=== PATIENT | male | born 1930 | race Caucasian/White ===

== ENCOUNTER 2018-01-03 23:01 | Inpatient (IN) | payer OTHER, BC ==
[~2018-01-03] VITALS: Ht 165.1 cm; Wt 72.6 kg
[~2018-01-03 23:01] MED LIST: ACET-1256 PO; ALLO300T2 PO; AMLO-110 PO; ASPI325T4 PO; ATOR-14 PO; CHOL1000 PO; CITA20TA4 PO; FINA5TAB PO; FLM4 PO; LORA-741 PO; MULT-190 PO; MULT-506 PO; PANT40TA PO; TRAM-10 PO; ZOLP10TA PO
[2018-01-03 23:41] LABS: BASO % 0.4 %; BASO ABS # 0.02 K/uL (0-0.2); EOS % 1.7 %; EOS ABS # 0.08 K/uL (0-0.5); HEMOGLOBIN 12.6 g/dL (14.0-18.0); IG# 0.02 K/uL (0.00-0.02); LYMPH % 20.5 %; LYMPH ABS # 0.96 K/uL (1.2-3.4); MEAN CELL VOLUME 107.6 fL (80-100); MEAN CORPUSCULAR HEMOGLOBIN 36.6 pg (25-34); MEAN CORPUSCULAR HGB CONC 34.1 g/dl (32-36); MEAN PLATELET VOLUME 10.2 fL (7.4-10.4); MONO ABS # 0.75 K/uL (0.11-0.59); NEUT ABS # 2.85 K/uL (1.4-6.5); PLATELET COUNT 131 K/uL (130-400); RED CELL DISTRIBUTION WIDTH CV 16.1 % (11.5-14.5); RED CELL DISTRIBUTION WIDTH SD 63.8 fL (36.4-46.3); WHITE BLOOD COUNT 4.68 K/uL (4.8-10.8)
[2018-01-03] MEDS ORDERED: ALBUT/IPRATROP 3MG/0.5MG NEB 3 ML VIAL INH STA (23:44)
[2018-01-03] MEDS ORDERED: ACETAMINOPHEN 500 MG TAB PO STA (23:44)
[2018-01-03 23:52] LABS: PTT PATIENT 29.5 SECONDS (21.0-31.0)
[2018-01-04 00:08] LABS: INFLUENZA B ANTIGEN Neg for Influ B (NEG)
[2018-01-04 00:11] LABS: ALBUMIN 3.1 gm/dl (3.4-5.0); CALCIUM 8.2 mg/dl (8.5-10.1); CREATININE 1.17 mg/dl (0.60-1.40); POTASSIUM 3.7 mmol/L (3.5-5.1)
[2018-01-04 00:14] LABS: TOTAL PROTEIN 7.2 gm/dl (6.4-8.2)
[2018-01-04] MEDS ORDERED: OPTIRAY 320 IV PRN (01:00)
[2018-01-04] MEDS ORDERED: TRAMADOL HCL 50 MG TAB PO ONE (05:31)
[2018-01-04] MEDS ORDERED: TRAMADOL HCL 50 MG TAB ONE (05:36)
[2018-01-04] MEDS ORDERED: TRAMADOL HCL 50 MG TAB PO PRN (05:45)
[2018-01-04] MEDS ORDERED: ALBUT/IPRATROP 3MG/0.5MG NEB 3 ML VIAL INH PRN (05:45)
[2018-01-04] MEDS ORDERED: ACETAMINOPHEN 325 MG TAB PO PRN (05:45)
[2018-01-04] MEDS ORDERED: KETOROLAC TROMETHAMINE 15 MG/ML VIAL IV. PRN (05:45)
[2018-01-04] MEDS ORDERED: LORAZEPAM 0.5 MG TAB PO PRN (05:45)
[2018-01-04] MEDS ORDERED: POLYETHYLENE (MIRALAX) 17 GM PACK PO PRN (05:45)
[2018-01-04] MEDS ORDERED: HYDROmorphone INJ 0.5 MG/0.5 ML SYR IV PRN (05:45)
[2018-01-04] MEDS ORDERED: PROCHLORPERAZINE INJ 5 MG in SYRINGE 4 ML IV PRN (05:45)
[2018-01-04] MEDS ORDERED: DOXYCYCLINE IV 100 MG in DEXTROSE 5% 100ML 100 ML IV ONE (06:30)
[2018-01-04] MEDS ORDERED: DOCUSATE SODIUM/SENNA 50/8.6MG TAB PO ONE (06:30)
[2018-01-04] MEDS ORDERED: METHYLPREDNISOLONE IV 40 MG in SYRINGE 0 ML IV ONE (06:30)
[2018-01-04] MEDS ORDERED: POLYETHYLENE (MIRALAX) 17 GM PACK PO ONE (06:30)
[2018-01-04] MEDS ORDERED: NSS + 20MEQ KCL 1000ML 1,000 ML IV ONE (06:30)
[2018-01-04 06:40] VITALS: BP 169/80; PULSE 82; TEMP 36.7; O2SAT 95; Ht 165.1 cm; Wt 72.6 kg
--- NOTE | 2018-01-04 07:13 | DIAGNOSTIC IMAGING REPORT ---
PA CHEST RADIOGRAPH AND UPRIGHT AND SUPINE AP RADIOGRAPHS OF THE ABDOMEN CLINICAL HISTORY: Abdominal pain. Evaluate for small bowel obstruction. COMPARISON STUDY: Chest radiograph September 09, 2012. FINDINGS: Lung volumes are normal. Right shoulder arthroplasty is incidentally noted. There is no evidence for pulmonary edema. Cardiac size is normal. Mediastinal contours are normal. There is no consolidation. There is no free air. Prominent loops gas-filled small bowel are noted without convincing evidence for a small bowel obstruction. Bilateral renal calculi measure up to 5 mm. IMPRESSION: 1. No free air or evidence for a bowel obstruction. 2. No acute cardiopulmonary findings. 3. Bilateral nephrolithiasis. Electronically signed by: Harish Oswald M.D. 01/04/2018 7:12 AM Dictated Date/Time: 01/04/2018 7:09 AM
[2018-01-04] MEDS ORDERED: DOCUSATE SODIUM/SENNA 50/8.6MG TAB PO SCH (08:00)
[2018-01-04] MEDS: CITALOPRAM 20 MG TAB PO SCH (08:18)
[2018-01-04] MEDS: ENOXAPARIN 30 MG/0.3 ML SYR SQ SCH (08:18)
--- NOTE | 2018-01-04 08:19 | DIAGNOSTIC IMAGING REPORT ---
CT OF THE ABDOMEN AND PELVIS WITH CONTRAST CLINICAL HISTORY: Abdominal pain. Evaluate for small bowel obstruction. COMPARISON STUDY: Abdominal series performed January 03, 2018. TECHNIQUE: Following IV administration of 93 mL of Optiray-320, axial images of the abdomen and pelvis were obtained from the lung bases to the proximal femurs. Images were reviewed in the axial, sagittal, and coronal planes. IV contrast was administered without complication. A dose lowering technique was utilized adhering to the principles of ALARA. CT DOSE: 413.19 mGy.cm FINDINGS: Visualized portions of the lower lungs demonstrate scattered tree-in-bud nodules. No pneumatosis, free air or portal venous gas is present. A 7 mm right hepatic lobe lesion is too small to characterize but likely benign. A few water attenuation left renal lesions reflect cysts. There are bilateral renal calculi which measure up to 5 mm. There are no ureteral calculi and there is no hydronephrosis. Prostate is moderately enlarged. Bladder wall irregularity is noted with bladder diverticula and trabeculations. No abdominal or pelvic lymphadenopathy is present. There is no peripancreatic or pericholecystic infiltration. There is pancreatic glandular atrophy. Extensive sigmoid diverticulosis is noted without evidence for acute diverticulitis. There is no evidence for a bowel obstruction. The appendix is normal. No suspicious osseous lesions are present. Multilevel degenerative changes within the spine are noted. IMPRESSION: 1. No acute process within the abdomen or pelvis. 2. Bilateral nephrolithiasis. No ureteral calculi or hydronephrosis. 2. Extensive left colon diverticulosis without evidence for acute diverticulitis. 3. Moderate enlargement of the prostate. Irregular bladder wall thickening with trabeculation and bladder diverticula. This suggests chronic bladder outlet obstruction. Electronically signed by: Harish Oswald M.D. 01/04/2018 8:17 AM Dictated Date/Time: 01/04/2018 8:12 AM
[2018-01-04] MEDS: ATORVASTATIN 10 MG TAB PO SCH (08:22)
[2018-01-04] MEDS: ASPIRIN 325 MG ECTAB PO SCH (08:22)
[2018-01-04] MEDS: TAMSULOSIN HCL 0.4 MG CAP PO SCH (08:22)
[2018-01-04] MEDS: MULTIVITAMIN TAB PO SCH (08:23)
[2018-01-04] MEDS: CEROVITE ADV FORMULA TAB PO SCH (08:23)
[2018-01-04] MEDS: AMLODIPINE BESYLATE 5 MG TAB PO SCH (08:24)
[2018-01-04] MEDS: FINASTERIDE 5 MG TAB PO SCH (08:25)
[2018-01-04] MEDS: PANTOprazole SOD 40 MG TAB PO SCH (08:26)
[2018-01-04] MEDS: ALLOPURINOL 300 MG TAB PO SCH (08:26)
[2018-01-04 08:28] VITALS: BP 155/67; PULSE 82; TEMP 36.8; O2SAT 91
[2018-01-04 08:30] VITALS: O2SAT 91
[2018-01-04] MEDS ORDERED: LEVALBUTEROL/IPRATROPIUM NEB INH SCH (09:00)
--- NOTE | 2018-01-04 09:47 | HISTORY & PHYSICAL EXAMINATION ---
DATE OF ADMISSION: 01/04/2018 PRIMARY CARE DOCTOR: Sanya Pearl MD. CHIEF COMPLAINT: Cough, congestion, abdominal pain. HISTORY OF PRESENT ILLNESS: History obtained from the patient and records. Medical history significant for CAD status post stent, PVD, hypertension, hyperlipidemia, past tobacco abuse, GERD, anxiety, Chronic pain secondary to myofascial pain syndrome, aortic stenosis as per records, chronic anemia (baseline hemoglobin 12). Recent confinement under orthopedic service for right shoulder surgery in 2011. The last few days, the patient noted sinus symptoms, congestion, initially productive of clear later junky sputum. No chest pain with coughing, some chills, wheezing noted. Denies aspiration. Increasing abdominal pain, constipation. Some nausea, no emesis. Patient denies dysuria. Possible sick contacts. Denies flulike symptoms. At the ER, patient noted to be hypoxemic. He received a breathing treatment. MEDICAL HISTORY: As above. A 2D echo from June 2017 showed EF of 65%, severely calcified aortic valve. SURGERIES: He has had urologic procedures, shoulder surgery and vasectomy. HOME MEDICATIONS: Include Ambien, Ultram, citalopram, Proscar, multivitamins, Ocuvite, Protonix, tamsulosin, Zyloprim, aspirin, Lipitor, Tylenol, Norvasc, vitamin D3. ALLERGIES: No known drug allergies. FAMILY HISTORY: Kidney disease. PERSONAL AND SOCIAL HISTORY: Past tobacco abuse. No chronic intake of alcoholic beverages. Retired drafting engineer. REVIEW OF SYSTEMS: As per HPI. All 10 systems reviewed, all other ROS negative. PHYSICAL EXAMINATION: VITAL SIGNS: Blood pressure noted to be 165/89, pulse rate 97, RR 24, temperature 37, sats 88 on 4 liters. GENERAL: Noted to be somewhat irate, minimal respiratory distress. SKIN : pallor, warm HEENT : Pale palpebral conjunctiva. No ptosis. Dry buccal mucosa. Nasal cannula in place. NECK: Supple, nontender. CHEST: Occasional wheeze. No tenderness. HEART: Regular rate and rhythm, systolic murmur. ABDOMEN: Some distension, nontender. EXTREMITIES: No edema noticed. No LE tenderness. No gross deformities. NEUROLOGIC: Coherent. No gross focality. LABORATORY DATA: Hemoglobin was noted to be 12.6, hematocrit 37, white cell 4.68, platelets 131. Sodium 131, potassium 3.7, chloride 102, CO2 28, BUN 12, creatinine 1.17, glucose 104. ABG: pH 7.44, pCO2 40, pO2 71 on 3 liters. Chest x-ray as per my interpretation, no infiltrate. CT abdomen and pelvis initial read showed diverticulosis, no bowel obstruction. calcified lung nodules, questionable tree bud lung infiltrate, no bowel obstruction, diverticulosis, some bladder wall thickening. EKG as per my interpretation rate 90, NSR, LAD, LAFB no ischemia ASSESSMENT: 1 Acute hypoxemic respiratory failure secondary to complicated bronchitis. No sepsis. 2. Constipation, narcotic induced 3. Coronary artery disease status post stenting. 4. Peripheral vascular disease. 5. hx of aortic stenosis 6. Past tobacco abuse. 7. Chronic anemia, hemoglobin at baseline. PLAN: GMF supplemental O2. Doxycycline, nebs steroid one dose, may benefit from additional steroid dosing bowel regimen. PT, OT eval. DVT prophylaxis with Lovenox subQ. Full code. MTDD
[2018-01-04] MEDS: IPRATROPIUM BROMIDE NEB SOLN 0.02% 2.5 ML VIAL INH SCH ×2 (14:48→19:17)
[2018-01-04] MEDS: LEVALBUTEROL 1.25MG/0.5ML NEB INH SCH ×2 (14:48→19:17)
[2018-01-04 14:50] VITALS: PULSE 94; O2SAT 92
--- NOTE | 2018-01-04 15:42 | Progress Note ---
Medicine Progress Note Date & Time of Visit: Jan 04, 2018 at 15:24. Subjective Pt was seen and examined Lying in bed with no distress Pt said that he continues to cough He said that he feels weak He had 3 BM today He said that he has pain everywhere Denies any fever, chest pain, palpitation Objective Last 8 Hrs Date Time Temp Pulse Resp B/P (MAP) Pulse Ox O2 Delivery O2 Flow Rate FiO2 01/04/18 14:50 94 16 92 Nasal Cannula 2.0 01/04/18 08:30 91 Room Air 01/04/18 08:28 36.8 82 155/67 (96) 91 Room Air Physical Exam: General- no acute distress Head- atraumatic Eyes- PERRL, EOMI ENT- oropharynx clear Neck- supple, no JVD Lungs- Poor air entry Heart- regular rhythm Abdomen- normal bowel sounds, soft Extremities-No calf tenderness Neuro- alert, oriented x 3; PERRL, EOMI Skin- warm & dry Laboratory Results: Last 24 Hours Test 01/03/18 23:20 01/03/18 23:26 01/04/18 00:30 01/04/18 05:36 White Blood Count 4.68 K/uL Red Blood Count 3.44 M/uL Hemoglobin 12.6 g/dL Hematocrit 37.0 % Mean Corpuscular Volume 107.6 fL Mean Corpuscular Hemoglobin 36.6 pg Mean Corpuscular Hemoglobin Concent 34.1 g/dl Platelet Count 131 K/uL Mean Platelet Volume 10.2 fL Neutrophils (%) (Auto) 61.0 % Lymphocytes (%) (Auto) 20.5 % Monocytes (%) (Auto) 16.0 % Eosinophils (%) (Auto) 1.7 % Basophils (%) (Auto) 0.4 % Neutrophils # (Auto) 2.85 K/uL Lymphocytes # (Auto) 0.96 K/uL Monocytes # (Auto) 0.75 K/uL Eosinophils # (Auto) 0.08 K/uL Basophils # (Auto) 0.02 K/uL RDW Standard Deviation 63.8 fL RDW Coefficient of Variation 16.1 % Immature Granulocyte % (Auto) 0.4 % Immature Granulocyte # (Auto) 0.02 K/uL Prothrombin Time 10.5 SECONDS Prothromb Time International Ratio 1.0 Activated Partial Thromboplast Time 29.5 SECONDS Partial Thromboplastin Ratio 1.1 Sodium Level 138 mmol/L Potassium Level 3.7 mmol/L Chloride Level 102 mmol/L Carbon Dioxide Level 28 mmol/L Anion Gap 8.0 mmol/L Blood Urea Nitrogen 12 mg/dl Creatinine 1.17 mg/dl Est Creatinine Clear Calc Drug Dose 41.6 ml/min Estimated GFR () 65.5 Estimated GFR (Non- 56.5 BUN/Creatinine Ratio 10.2 Random Glucose 104 mg/dl Calcium Level 8.2 mg/dl Magnesium Level 2.2 mg/dl Total Bilirubin 0.4 mg/dl Aspartate Amino Transf (AST/SGOT) 29 U/L Alanine Aminotransferase (ALT/SGPT) 36 U/L Alkaline Phosphatase 61 U/L Total Protein 7.2 gm/dl Albumin 3.1 gm/dl Globulin 4.1 gm/dl Albumin/Globulin Ratio 0.8 Lipase 48 U/L Thyroid Stimulating Hormone (TSH) 3.110 uIu/ml Influenza Type A Antigen Neg for Influ A Influenza Type B Antigen Neg for Influ B Bedside Lactic Acid Venous 1.57 mmol/L Urine Color YELLOW Urine Appearance CLEAR Urine pH 7.0 Urine Specific [place] 1.014 Urine Protein 1+ Urine Glucose (UA) NEG Urine Ketones TRACE Urine Occult Blood NEG Urine Nitrite NEG Urine Bilirubin NEG Urine Urobilinogen NEG Urine Leukocyte Esterase NEG Urine WBC (Auto) 1-5 /hpf Urine RBC (Auto) 0-4 /hpf Urine Hyaline Casts (Auto) 1-5 /lpf Urine Epithelial Cells (Auto) 5-10 /lpf Urine Bacteria (Auto) NEG Arterial Blood pH 7.44 Arterial Blood Partial Pressure CO2 40 mmHg Arterial Blood Partial Pressure O2 71 mm/Hg Arterial Blood HCO3 27 mmol/L Arterial Blood Oxygen Saturation 93.2 % Arterial Blood Base Excess 2.7 mEq/L Arterial Blood Gas Delivery 3L Terence Test POS Date/Time Source Procedure Growth Status 01/03/18 23:25 Blood Blood Culture Pending Received 01/03/18 23:20 Blood Blood Culture Pending Received Assessment & Plan Acute hypoxia respiratory failure Possible 2nd to bronchitis. Flu negative for influenza antigen Will get Influenza PCR Blood cx pending CXR negative for Pneumonia Continue doxycycline Received solumedrol this morning Continue neb treatment continue monitor Constipation mostly induced by narcotic On docusate Had 3 BM today CAD S/P stenting. Peripheral vascular disease Continue Aspirin/Statin Stable Chronic pain syndrome On tramadol and Tylenol Weakness Possible related to the acute illness UA negative PT/OT Fall precaution Chronic anemia Hemoglobin at baseline. Stable DVT px on lovenox CODE STATUS FULL CODE Current Inpatient Medications: Current Inpatient Medications Medications (Trade) Dose Ordered Sig/Erika Route Start Time Stop Time Status Last Admin Dose Admin Ioversol (Optiray 320) 100 ml UD PRN IV 01/04/18 01:00 01/08/18 00:59 Tramadol HCl (Ultram Tab) not relieved ... Q6H PRN PO 01/04/18 05:45 02/03/18 05:44 Doxycycline Hyclate (Vibramycin Cap) 100 mg BID PO 01/04/18 20:00 01/11/18 20:59 Potassium Chloride/Sodium Chloride 1,000 ml @ 60 mls/hr [id number] ONCE IV 01/04/18 06:30 01/04/18 23:09 01/04/18 07:04 60 MLS/HR Albuterol/ Ipratropium (Duoneb) 3 ml Q2H PRN INH 01/04/18 05:45 02/03/18 05:44 Senna/Docusate Sodium (Senokot S Tab) 1 tab BID PO 01/04/18 08:00 02/03/18 08:59 Polyethylene (Miralax Powder Packet) 17 gm DAILY PRN PO 01/04/18 05:45 02/03/18 05:44 Prochlorperazine Edisylate 5 mg/ Syringe 5 ml @ 5 mls/min Q6H PRN IV 01/04/18 05:45 02/03/18 05:44 Allopurinol (Zyloprim Tab) 300 mg DAILY PO 01/04/18 08:00 02/03/18 08:59 01/04/18 08:26 300 MG Amlodipine Besylate (Norvasc Tab) 5 mg DAILY PO 01/04/18 08:00 02/03/18 08:59 01/04/18 08:24 5 MG Aspirin (Ecotrin Tab) 325 mg DAILY PO 01/04/18 08:00 02/03/18 08:59 01/04/18 08:22 325 MG Atorvastatin Calcium (Lipitor Tab) 10 mg DAILY PO 01/04/18 08:00 02/03/18 08:59 01/04/18 08:22 10 MG Citalopram Hydrobromide (celeXA TAB) 20 mg DAILY PO 01/04/18 08:00 02/03/18 08:59 01/04/18 08:18 20 MG Finasteride (Proscar Tab) 5 mg DAILY PO 01/04/18 08:00 02/03/18 08:59 01/04/18 08:25 5 MG Multivitamins (Multivitamin Tab) 1 tab DAILY PO 01/04/18 08:00 02/03/18 08:59 01/04/18 08:23 1 TAB Multivitamins/ Minerals (Multivitamin W/ Minerals Tab) 1 tab DAILY PO 01/04/18 08:00 02/03/18 08:59 01/04/18 08:23 1 TAB Pantoprazole Sodium (Protonix Tab) 40 mg DAILY PO 01/04/18 08:00 02/03/18 08:59 01/04/18 08:26 40 MG Tamsulosin HCl (Flomax Cap) 0.4 mg DAILY PO 01/04/18 08:00 02/03/18 08:59 01/04/18 08:22 0.4 MG Lorazepam (Ativan Tab) 0.25 mg HS PRN PO 01/04/18 05:45 02/03/18 05:44 Enoxaparin Sodium (Lovenox Inj) 30 mg Q24H SQ 01/04/18 07:00 02/03/18 06:59 01/04/18 08:18 30 MG Acetaminophen (Tylenol Tab) 650 mg Q4H PRN PO 01/04/18 05:45 02/03/18 05:44 Hydromorphone HCl (Dilaudid Inj) 0.25 mg Q6H PRN IV 01/04/18 05:45 01/18/18 05:44 Ketorolac Tromethamine (Toradol Inj) 15 mg Q6H PRN IV. 01/04/18 05:45 01/09/18 05:44 Ipratropium [place] (Atrovent 0.02% 0.5MG/2.5ML Neb) 0.5 mg Q6R INH 01/04/18 09:00 02/03/18 08:59 01/04/18 14:48 0.5 MG Levalbuterol (Xopenex 1.25MG/ 0.5ML Neb) 1.25 mg Q6R INH 01/04/18 09:00 02/03/18 08:59 01/04/18 14:48 1.25 MG
[2018-01-04] MEDS ORDERED: DOCUSATE SODIUM/SENNA 50/8.6MG TAB PO PRN (15:45)
[2018-01-04 16:22] VITALS: BP 130/68; PULSE 99; TEMP 36.9; O2SAT 91
[2018-01-04 16:58] LABS: INFLUENZA A PCR Neg for Influ A (NEG); INFLUENZA B PCR Neg for Influ B (NEG)
[2018-01-04 19:20] VITALS: PULSE 101; O2SAT 96
[2018-01-04] MEDS: DOXYCYCLINE HYCLATE 100 MG CAP PO SCH (20:33)
--- NOTE | 2018-01-04 22:34 | EMERGENCY ROOM VISIT NOTE ---
History Report prepared by Tyson: Ronit Sandoval Under the Supervision of: Dr. Su Burnette D.O. First contact with patient: 23:09 Chief Complaint: ABDOMINAL PAIN Stated Complaint: ABDOMINAL PAIN/FLU LIKE SYMPTOMS History of Present Illness The patient is an 87 year old male who presents to the Emergency Room with complaints of worsening abdominal pain starting 2 days ago. The patient states that his abdomen feels distended. He currently rates his pain asa 6/10 in severity. He reports that he has not had a good bowel movement recently. The patient complains of cough, congestion, shortness of breath, and a low grade fever. The patient denies nausea, vomiting, and diarrhea. The patient's nurse notes he is 90% on room air. The patient denies ever having respiratory problems or using inhalers although he is a former smoker. The patient denies having any abdominal surgeries. He notes he had a colonoscopy 7-8 years ago that was normal. Source of History: patient Onset: 2 days ago Position: abdomen Symptom Intensity: 6/10 Quality: other (distended) Timing: worsening Associated Symptoms: + fevers, + cough, + SOB, No nausea, No vomiting, No diarrhea Note: The patient complains of congestion and not having a bowel movement recently. Review of Systems See HPI for pertinent positives & negatives. A total of 10 systems reviewed and were otherwise negative. Past Medical & Surgical Medical Problems: (1) Respiratory failure, acute Surgical Problems: (1) Hx of shoulder surgery Family History Patient reports no known family medical history. Social History Smoking Status: Former Smoker Marital Status: single Housing Status: lives alone Occupation Status: retired Current/Historical Medications Scheduled Allopurinol (Zyloprim), 300 MG PO DAILY Amlodipine (Norvasc), 5 MG PO DAILY Aspirin (Aspirin), 325 MG PO DAILY Atorvastatin (Lipitor), 10 MG PO DAILY Cholecalciferol (Vitamin D3), 1 TAB PO DAILY Citalopram Hydrobromide (Citalopram Hydrobromide), 20 MG PO DAILY Finasteride (Proscar), 5 MG PO DAILY Multivitamin (Multivitamin), 1 TAB PO DAILY Ocuvite Preservision (Ocuvite Preservision), 1 TAB PO DAILY Pantoprazole (Protonix), 40 MG PO DAILY Tamsulosin HCl (Tamsulosin HCl), 1 CAP PO DAILY Zolpidem Tartrate (Ambien), 5 MG PO HS PRN Scheduled PRN Acetaminophen (Tylenol), 1,000 MG PO Q8 PRN for Pain Tramadol (Ultram), 50 MG PO Q6 PRN for Pain Allergies Coded Allergies: NO KNOWN DRUG ALLERGIES (Verified Allergy, Unknown, ., 01/04/18) Uncoded Allergies: BASE CREAM (Allergy, Unknown, hives, 01/04/18) Physical Exam Vital Signs Date Time Temp Pulse Resp B/P (MAP) Pulse Ox O2 Delivery O2 Flow Rate FiO2 01/04/18 05:15 75 20 152/75 95 Nasal Cannula 4.0 01/04/18 04:00 70 20 136/69 95 Nasal Cannula 4.0 01/04/18 03:10 84 01/04/18 03:08 79 20 156/72 96 Nasal Cannula 4.0 01/04/18 02:00 72 20 128/66 96 Nasal Cannula 4.0 01/04/18 01:00 36.8 91 22 147/89 98 Nasal Cannula 4.0 01/04/18 00:00 85 20 136/72 97 Nasal Cannula 4.0 01/03/18 23:29 93 Nasal Cannula 2.0 01/03/18 23:20 88 Nasal Cannula 4.0 01/03/18 23:10 103 01/03/18 23:04 37.5 97 24 165/89 91 Room Air Physical Exam HEENT: Head - normocephalic and atraumatic Pupils are equal, round, and reactive to light. Extraocular eye muscles are intact, and sclera are anicteric. Nose - moist nasal mucosa without discharge. Mouth - moist buccal mucosa. Oropharynx is nonerythematous and there is no tonsillar exudate or edema noted. Neck: Supple; no JVD, nuchal rigidity, cervical lymphadenopathy, or auscultated bruits. Heart: Tachycardic rate and regular rhythm. There is a normal S1 and S2 with no murmurs, clicks, or gallops appreciated. Lungs: Diffuse inspiratory and expiratory wheezes in all lung louise. No rales or rhonchi. Abdomen: Soft, significant abdominal distension. tympanic to percussion. Hypoactive bowel sounds. There are no palpable pulsatile masses or hepatosplenomegaly. There is no guarding, rigidity, or rebound noted. Extremities: No evidence of cyanosis, clubbing, or edema. There are easily palpable peripheral pulses. Skin: hot and dry with good turgor and no rashes. Medical Decision & Procedures ER Provider Diagnostic Interpretation: Radiology results as stated below per my review and the radiologist's interpretation: OBSTRUCTION SERIES: The results were interpreted by me. Unremarkable chest. Mild dilated loops of small bowel. No free air. Some colonic fecal retention. Very little air in rectum. No obvious sign of bowel obstruction. CT ABDOMEN & PELVIS With Contrast: No priors. Atelectasis and/or scar at lung bases. There is mucous or debris in some of the airways. Calcified and noncalcified lung nodules. Questionable tree-in-bud type infiltrate. No bowel obstruction. Diverticulosis without diverticulitis. No evidence for appendicitis. Prostate enlargement. There is wall thickening of bladder which may be related. Correlate for cystitis. Chronic/incidental findings include fatty atrophy of the pancreas, renal cysts, low density liver lesion too small to characterize and bladder diverticula. Radiologist: Mariano Lyle MD Study ready at 03:10 and initial results transmitted at 03:43. Laboratory Results 01/03/18 23:20 Red Blood Count 3.44, Mean Corpuscular Volume 107.6, Mean Corpuscular Hemoglobin 36.6, Mean Corpuscular Hemoglobin Concent 34.1, Mean Platelet Volume 10.2, Neutrophils (%) (Auto) 61.0, Lymphocytes (%) (Auto) 20.5, Monocytes (%) ( Auto) 16.0, Eosinophils (%) (Auto) 1.7, Basophils (%) (Auto) 0.4, Neutrophils # (Auto) 2.85, Lymphocytes # (Auto) 0.96, Monocytes # (Auto) 0.75, Eosinophils # ( Auto) 0.08, Basophils # (Auto) 0.02 01/03/18 23:20 Test 01/03/18 23:20 01/03/18 23:26 01/04/18 00:30 White Blood Count 4.68 K/uL (4.8-10.8) Red Blood Count 3.44 M/uL (4.7-6.1) Hemoglobin 12.6 g/dL (14.0-18.0) Hematocrit 37.0 % (42-52) Mean Corpuscular Volume 107.6 fL (80-100) Mean Corpuscular Hemoglobin 36.6 pg (25-34) Mean Corpuscular Hemoglobin Concent 34.1 g/dl (32-36) Platelet Count 131 K/uL (130-400) Mean Platelet Volume 10.2 fL (7.4-10.4) Neutrophils (%) (Auto) 61.0 % Lymphocytes (%) (Auto) 20.5 % Monocytes (%) (Auto) 16.0 % Eosinophils (%) (Auto) 1.7 % Basophils (%) (Auto) 0.4 % Neutrophils # (Auto) 2.85 K/uL (1.4-6.5) Lymphocytes # (Auto) 0.96 K/uL (1.2-3.4) Monocytes # (Auto) 0.75 K/uL (0.11-0.59) Eosinophils # (Auto) 0.08 K/uL (0-0.5) Basophils # (Auto) 0.02 K/uL (0-0.2) RDW Standard Deviation 63.8 fL (36.4-46.3) RDW Coefficient of Variation 16.1 % (11.5-14.5) Immature Granulocyte % (Auto) 0.4 % Immature Granulocyte # (Auto) 0.02 K/uL (0.00-0.02) Prothrombin Time 10.5 SECONDS (9.0-12.0) Prothromb Time International Ratio 1.0 (0.9-1.1) Activated Partial Thromboplast Time 29.5 SECONDS (21.0-31.0) Partial Thromboplastin Ratio 1.1 Anion Gap 8.0 mmol/L (3-11) Est Creatinine Clear Calc Drug Dose 41.6 ml/min Estimated GFR () 65.5 Estimated GFR (Non- 56.5 BUN/Creatinine Ratio 10.2 (10-20) Calcium Level 8.2 mg/dl (8.5-10.1) Magnesium Level 2.2 mg/dl (1.8-2.4) Total Bilirubin 0.4 mg/dl (0.2-1) Aspartate Amino Transf (AST/SGOT) 29 U/L (15-37) Alanine Aminotransferase (ALT/SGPT) 36 U/L (12-78) Alkaline Phosphatase 61 U/L (45-117) Total Protein 7.2 gm/dl (6.4-8.2) Albumin 3.1 gm/dl (3.4-5.0) Globulin 4.1 gm/dl (2.5-4.0) Albumin/Globulin Ratio 0.8 (0.9-2) Lipase 48 U/L (73-393) Thyroid Stimulating Hormone (TSH) 3.110 uIu/ml (0.300-4.500) Influenza Type A Antigen Neg for Influ A (NEG) Influenza Type B Antigen Neg for Influ B (NEG) Bedside Lactic Acid Venous 1.57 mmol/L (0.90-1.70) Urine Color YELLOW Urine Appearance CLEAR (CLEAR) Urine pH 7.0 (4.5-7.5) Urine Specific [place] 1.014 (1.000-1.030) Urine Protein 1+ (NEG) Urine Glucose (UA) NEG (NEG) Urine Ketones TRACE (NEG) Urine Occult Blood NEG (NEG) Urine Nitrite NEG (NEG) Urine Bilirubin NEG (NEG) Urine Urobilinogen NEG (NEG) Urine Leukocyte Esterase NEG (NEG) Urine WBC (Auto) 1-5 /hpf (0-5) Urine RBC (Auto) 0-4 /hpf (0-4) Urine Hyaline Casts (Auto) 1-5 /lpf (0-5) Urine Epithelial Cells (Auto) 5-10 /lpf (0-5) Urine Bacteria (Auto) NEG (NEG) Laboratory results per my review. Medications Administered Medications (Trade) Dose Ordered Sig/Erika Route Start Time Stop Time Status Last Admin Dose Admin Albuterol/ Ipratropium (Duoneb) 3 ml NOW STAT INH 01/03/18 23:44 01/03/18 23:45 DC 01/03/18 23:54 3 ML Acetaminophen (Tylenol Tab) 1,000 mg NOW STAT PO 01/03/18 23:44 01/03/18 23:45 DC 01/03/18 23:54 1,000 MG Procedure 2344: Ordered Tylenol Tab 1000 mg PO, Duoneb 3 ml INH. ECG Indication: abdominal pain Rate (beats per minute): 91 Rhythm: normal sinus Findings: no acute ischemic change, no ectopy ED Course 2313: Past medical records reviewed. The patient was evaluated in room A3. A complete history and physical exam was performed. An IV lock was initiated and labs were drawn as above. 2344: Ordered Tylenol Tab 1000 mg PO, Duoneb 3 ml INH. The patient went for an obstruction series 0108: I reevaluated the patient and his abdomen still hurts, but he feels like he needs to move his bowels. He is passing gas. He states that he is breathing more easily. He will go for a CT scan of the abdomen/pelvis once he drinks oral contrast. 0121: I interpreted the patient's EKG at this time. 0428: The patient returned from CAT scan. I reevaluated the patient and he has still not moved his bowels. I discussed all his test results with him. The patient was up to the restroom without supplemental oxygen and was immediately hypoxic. 0436: Discussed the patient's case with Dr. Herrera. The patient will be evaluated for further management. Medical Decision The patient is an 87 year old male who presents to the Emergency Room with complaints of worsening abdominal pain starting 2 days ago. Differential diagnoses include bowel obstruction, appendicitis, perforated bowel , influenza, pneumonia. LABS: White count 4.6 Hemoglobin 12.6 Lactic acid 1.5 Normal renal function Normal glucose Normal LFTs Normal Coags Urine had trace ketones Negative flu This is a 87-year-old male patient presents to the emergency department with abdominal pain and distention and some associated shortness of breath and wheezing. Influenza testing was negative. Chest x-ray was unremarkable. The patient had improvement in his respiratory status with a DuoNeb treatment. Plain films of the abdomen so no signs of obstruction. CT scan of the abdomen/pelvis were essentially unremarkable. However, the patient remains hypoxic without supplemental oxygen. [facility] and [facility] will evaluate for further management. Medication Reconcilliation Current Medication List: was personally reviewed by me Blood Pressure Screening Patient's blood pressure: Elevated blood pressure Will be further monitored by the hospitalist. Consults Time Called: [phone] Consulting Physician[facility] Returned Call: [phone] Discussed the patient's case with Dr. Herrera. The patient will be evaluated for further management. Impression Primary Impression: Hypoxia Additional Impression: Abdominal pain Scribe Attestation The scribe's documentation has been prepared under my direction and personally reviewed by me in its entirety. I confirm that the note above accurately reflects all work, treatment, procedures, and medical decision making performed by me. Departure Information Dispostion Being Evaluated By Hospitalist Referrals Sanya Pearl MD (PCP) Patient Instructions My [facility] Problem Qualifiers Additional Impression: Abdominal pain Abdominal location: generalized Qualified Codes: R10.84 - Generalized abdominal pain
[2018-01-05] VITALS (8 sets, daily range): BP systolic 145–166; BP diastolic 66–79; PULSE 88–96; TEMP 36.4–36.6; O2SAT 91–99
[2018-01-05] MEDS: IPRATROPIUM BROMIDE NEB SOLN 0.02% 2.5 ML VIAL INH SCH ×3 (01:58→14:37)
[2018-01-05] MEDS: LEVALBUTEROL 1.25MG/0.5ML NEB INH SCH ×3 (01:58→14:36)
[2018-01-05 06:51] LABS: BASO % 0.3 %; BASO ABS # 0.02 K/uL (0-0.2); HEMATOCRIT 31.6 % (42-52); HEMOGLOBIN 10.7 g/dL (14.0-18.0); IG# 0.01 K/uL (0.00-0.02); LYMPH % 13.3 %; LYMPH ABS # 0.91 K/uL (1.2-3.4); MEAN CELL VOLUME 107.5 fL (80-100); MEAN CORPUSCULAR HEMOGLOBIN 36.4 pg (25-34); MEAN CORPUSCULAR HGB CONC 33.9 g/dl (32-36); MEAN PLATELET VOLUME 10.1 fL (7.4-10.4); MONO ABS # 0.96 K/uL (0.11-0.59); NEUT % 72.3 %; NEUT ABS # 4.95 K/uL (1.4-6.5); PLATELET COUNT 141 K/uL (130-400); RED CELL DISTRIBUTION WIDTH CV 16.4 % (11.5-14.5); RED CELL DISTRIBUTION WIDTH SD 64.4 fL (36.4-46.3); WHITE BLOOD COUNT 6.85 K/uL (4.8-10.8)
[2018-01-05 07:20] LABS: CALCIUM 7.8 mg/dl (8.5-10.1); CREATININE 1.03 mg/dl (0.60-1.40); POTASSIUM 3.5 mmol/L (3.5-5.1)
[2018-01-05] MEDS: FINASTERIDE 5 MG TAB PO SCH (07:56)
[2018-01-05] MEDS: CITALOPRAM 20 MG TAB PO SCH (07:56)
[2018-01-05] MEDS: CEROVITE ADV FORMULA TAB PO SCH (07:56)
[2018-01-05] MEDS: MULTIVITAMIN TAB PO SCH (07:56)
[2018-01-05] MEDS: ATORVASTATIN 10 MG TAB PO SCH (07:56)
[2018-01-05] MEDS: TAMSULOSIN HCL 0.4 MG CAP PO SCH (07:56)
[2018-01-05] MEDS: DOXYCYCLINE HYCLATE 100 MG CAP PO SCH (07:56)
[2018-01-05] MEDS: ALLOPURINOL 300 MG TAB PO SCH (07:56)
[2018-01-05] MEDS: ASPIRIN 325 MG ECTAB PO SCH (07:57)
[2018-01-05] MEDS: ENOXAPARIN 30 MG/0.3 ML SYR SQ SCH (07:57)
[2018-01-05] MEDS: AMLODIPINE BESYLATE 5 MG TAB PO SCH (07:57)
[2018-01-05] MEDS: PANTOprazole SOD 40 MG TAB PO SCH (07:57)
--- NOTE | 2018-01-05 15:10 | Progress Note ---
Medicine Progress Note Date & Time of Visit: Jan 05, 2018 at 15:04. Subjective Pt was seen and examined Sitting in chair with no distress Pt said that he feels much better today He said that the cough improves He said that he would like to go home later today He said that he would feel better if he goes home He has been walking in the hallway using his walker with no distress Denies any chest pain, palpitation, dizziness and fever Objective Last 8 Hrs Date Time Temp Pulse Resp B/P (MAP) Pulse Ox O2 Delivery O2 Flow Rate FiO2 01/05/18 14:39 88 16 91 Room Air 01/05/18 08:00 Room Air 01/05/18 07:50 36.5 96 20 157/73 (101) 99 Nasal Cannula 2.0 166/79 (108) 01/05/18 07:14 91 16 91 Room Air Physical Exam: General- no acute distress Head- atraumatic Eyes- PERRL, EOMI ENT- oropharynx clear Neck- supple, no JVD Lungs- Poor air entry Heart- regular rhythm Abdomen- normal bowel sounds, soft Extremities-No calf tenderness Neuro- alert, oriented x 3; PERRL, EOMI Skin- warm & dry Laboratory Results: Last 24 Hours Test 01/04/18 16:00 01/05/18 06:23 Influenza Type A (RT-PCR) Neg for Influ A Influenza Type B (RT-PCR) Neg for Influ B White Blood Count 6.85 K/uL Red Blood Count 2.94 M/uL Hemoglobin 10.7 g/dL Hematocrit 31.6 % Mean Corpuscular Volume 107.5 fL Mean Corpuscular Hemoglobin 36.4 pg Mean Corpuscular Hemoglobin Concent 33.9 g/dl Platelet Count 141 K/uL Mean Platelet Volume 10.1 fL Neutrophils (%) (Auto) 72.3 % Lymphocytes (%) (Auto) 13.3 % Monocytes (%) (Auto) 14.0 % Eosinophils (%) (Auto) 0.0 % Basophils (%) (Auto) 0.3 % Neutrophils # (Auto) 4.95 K/uL Lymphocytes # (Auto) 0.91 K/uL Monocytes # (Auto) 0.96 K/uL Eosinophils # (Auto) 0.00 K/uL Basophils # (Auto) 0.02 K/uL RDW Standard Deviation 64.4 fL RDW Coefficient of Variation 16.4 % Immature Granulocyte % (Auto) 0.1 % Immature Granulocyte # (Auto) 0.01 K/uL Sodium Level 139 mmol/L Potassium Level 3.5 mmol/L Chloride Level 105 mmol/L Carbon Dioxide Level 27 mmol/L Anion Gap 7.0 mmol/L Blood Urea Nitrogen 12 mg/dl Creatinine 1.03 mg/dl Est Creatinine Clear Calc Drug Dose 45.6 ml/min Estimated GFR () 76.4 Estimated GFR (Non- 65.9 BUN/Creatinine Ratio 11.5 Random Glucose 112 mg/dl Calcium Level 7.8 mg/dl Assessment & Plan Acute hypoxia respiratory failure Possible due to bronchitis. Flu negative for influenza antigen and PCR Blood cx no growth CXR negative for Pneumonia Continue doxycycline Received solumedrol this morning Continue neb treatment continue monitor Clinically improved Constipation Mostly induced by narcotic CT abdomen showed no acute process within the abdomen or pelvis.Extensive left colon diverticulosis without evidence for acute diverticulitis. resolved CAD S/P stenting. Peripheral vascular disease Continue Aspirin/Statin Stable Chronic pain syndrome On tramadol and Tylenol Weakness Possible related to the acute illness UA negative PT/OT recommended to discharge home once medically stable Fall precaution Chronic anemia Hemoglobin at baseline. Stable DVT px on Lovenox CODE STATUS FULL CODE Disposition Follow up with Dr. Pearl on 01/08 @ 12:45 Current Inpatient Medications: Current Inpatient Medications Medications (Trade) Dose Ordered Sig/Erika Route Start Time Stop Time Status Last Admin Dose Admin Ioversol (Optiray 320) 100 ml UD PRN IV 01/04/18 01:00 01/08/18 00:59 Tramadol HCl (Ultram Tab) not relieved ... Q6H PRN PO 01/04/18 05:45 02/03/18 05:44 Doxycycline Hyclate (Vibramycin Cap) 100 mg BID PO 01/04/18 20:00 01/11/18 20:59 01/05/18 07:56 100 MG Albuterol/ Ipratropium (Duoneb) 3 ml Q2H PRN INH 01/04/18 05:45 02/03/18 05:44 Polyethylene (Miralax Powder Packet) 17 gm DAILY PRN PO 01/04/18 05:45 02/03/18 05:44 Prochlorperazine Edisylate 5 mg/ Syringe 5 ml @ 5 mls/min Q6H PRN IV 01/04/18 05:45 02/03/18 05:44 Allopurinol (Zyloprim Tab) 300 mg DAILY PO 01/04/18 08:00 02/03/18 08:59 01/05/18 07:56 300 MG Amlodipine Besylate (Norvasc Tab) 5 mg DAILY PO 01/04/18 08:00 02/03/18 08:59 01/05/18 07:57 5 MG Aspirin (Ecotrin Tab) 325 mg DAILY PO 01/04/18 08:00 02/03/18 08:59 01/05/18 07:57 325 MG Atorvastatin Calcium (Lipitor Tab) 10 mg DAILY PO 01/04/18 08:00 02/03/18 08:59 01/05/18 07:56 10 MG Citalopram Hydrobromide (celeXA TAB) 20 mg DAILY PO 01/04/18 08:00 02/03/18 08:59 01/05/18 07:56 20 MG Finasteride (Proscar Tab) 5 mg DAILY PO 01/04/18 08:00 02/03/18 08:59 01/05/18 07:56 5 MG Multivitamins (Multivitamin Tab) 1 tab DAILY PO 01/04/18 08:00 02/03/18 08:59 01/05/18 07:56 1 TAB Multivitamins/ Minerals (Multivitamin W/ Minerals Tab) 1 tab DAILY PO 01/04/18 08:00 02/03/18 08:59 01/05/18 07:56 1 TAB Pantoprazole Sodium (Protonix Tab) 40 mg DAILY PO 01/04/18 08:00 02/03/18 08:59 01/05/18 07:57 40 MG Tamsulosin HCl (Flomax Cap) 0.4 mg DAILY PO 01/04/18 08:00 02/03/18 08:59 01/05/18 07:56 0.4 MG Lorazepam (Ativan Tab) 0.25 mg HS PRN PO 01/04/18 05:45 02/03/18 05:44 01/04/18 20:33 0.25 MG Enoxaparin Sodium (Lovenox Inj) 30 mg Q24H SQ 01/04/18 07:00 02/03/18 06:59 01/05/18 07:57 30 MG Acetaminophen (Tylenol Tab) 650 mg Q4H PRN PO 01/04/18 05:45 02/03/18 05:44 Hydromorphone HCl (Dilaudid Inj) 0.25 mg Q6H PRN IV 01/04/18 05:45 01/18/18 05:44 Ketorolac Tromethamine (Toradol Inj) 15 mg Q6H PRN IV. 01/04/18 05:45 01/09/18 05:44 Ipratropium [place] (Atrovent 0.02% 0.5MG/2.5ML Neb) 0.5 mg Q6R INH 01/04/18 09:00 02/03/18 08:59 01/05/18 14:37 0.5 MG Levalbuterol (Xopenex 1.25MG/ 0.5ML Neb) 1.25 mg Q6R INH 01/04/18 09:00 02/03/18 08:59 01/05/18 14:36 1.25 MG Senna/Docusate Sodium (Senokot S Tab) 1 tab BID PRN PO 01/04/18 15:45 02/03/18 15:44
[2018-01-05] MEDS ORDERED: DXY100 PO (16:17)
[2018-01-05] MEDS ORDERED: GUAI1TAB68 PO (16:17)
[2018-01-05] MEDS ORDERED: SENN8.6T7 PO (16:17)
[2018-01-05] MEDS ORDERED: PRD20 PO (16:17)
--- NOTE | 2018-01-05 16:21 | Discharge Instructions ---
Discharge Instructions Date of Service Jan 05, 2018. Admission Reason for Admission: Respiratory Failure, Acute Discharge Discharge Diagnosis / Problem: Acute hypoxia respiratory failure, Bronchitis Discharge Goals Goal(s): Decrease discomfort, Improve function, Improve disease control Activity Recommendations Activity Limitations: resume your previous activity (as tolerated) . Instructions / Follow-Up Instructions / Follow-Up Follow up with Dr. Pearl on 01/08 @ 12:45 pm Complete course of antibiotic with doxycycline and prednisone Fall precaution Use walker to ambulate Current Hospital Diet Patient's current hospital diet: AHA Diet (Heart Healthy) Discharge Diet Recommended Diet: AHA Diet (Heart Healthy) Pending Studies Studies pending at discharge: no Medical Emergencies . Who to Call and When: Medical Emergencies: If at any time you feel your situation is an emergency, please call 911 immediately. . Non-Emergent Contact Non-Emergency issues call your: Primary Care Provider Call Non-Emergent contact if: you have a fever, you have any medication questions . . "Provider Documentation" section prepared by Miguelito Santiago. . VTE Core Measure Inpt VTE Proph given/why not?: Enoxaparin (Lovenox)SQ
--- NOTE | 2018-01-05 17:34 | Discharge Summary ---
Discharge Summary Date of Service Jan 05, 2018. Discharge Summary Admission Date: Jan 04, 2018 at 05:32 Discharge Date: Jan 05, 2018 Discharge Disposition: Home Principal Diagnosis: Acute hypoxia respiratory failure Secondary Diagnoses/Problems: Bronchitis Constipation Weakness Chronic pain syndrome Procedures: CT OF THE ABDOMEN AND PELVIS WITH CONTRAST CLINICAL HISTORY: Abdominal pain. Evaluate for small bowel obstruction. COMPARISON STUDY: Abdominal series performed January 03, 2018. TECHNIQUE: Following IV administration of 93 mL of Optiray-320, axial images of the abdomen and pelvis were obtained from the lung bases to the proximal femurs. Images were reviewed in the axial, sagittal, and coronal planes. IV contrast was administered without complication. A dose lowering technique was utilized adhering to the principles of ALARA. CT DOSE: 413.19 mGy.cm FINDINGS: Visualized portions of the lower lungs demonstrate scattered tree-in-bud nodules. No pneumatosis, free air or portal venous gas is present. A 7 mm right hepatic lobe lesion is too small to characterize but likely benign. A few water attenuation left renal lesions reflect cysts. There are bilateral renal calculi which measure up to 5 mm. There are no ureteral calculi and there is no hydronephrosis. Prostate is moderately enlarged. Bladder wall irregularity is noted with bladder diverticula and trabeculations. No abdominal or pelvic lymphadenopathy is present. There is no peripancreatic or pericholecystic infiltration. There is pancreatic glandular atrophy. Extensive sigmoid diverticulosis is noted without evidence for acute diverticulitis. There is no evidence for a bowel obstruction. The appendix is normal. No suspicious osseous lesions are present. Multilevel degenerative changes within the spine are noted. IMPRESSION: 1. No acute process within the abdomen or pelvis. 2. Bilateral nephrolithiasis. No ureteral calculi or hydronephrosis. 2. Extensive left colon diverticulosis without evidence for acute diverticulitis. 3. Moderate enlargement of the prostate. Irregular bladder wall thickening with trabeculation and bladder diverticula. This suggests chronic bladder outlet obstruction. Electronically signed by: Harish Oswald M.D. 01/04/2018 8:17 AM Dictated Date/Time: 01/04/2018 8:12 AM [~ rep ct add3]] PA CHEST RADIOGRAPH AND UPRIGHT AND SUPINE AP RADIOGRAPHS OF THE ABDOMEN CLINICAL HISTORY: Abdominal pain. Evaluate for small bowel obstruction. COMPARISON STUDY: Chest radiograph September 09, 2012. FINDINGS: Lung volumes are normal. Right shoulder arthroplasty is incidentally noted. There is no evidence for pulmonary edema. Cardiac size is normal. Mediastinal contours are normal. There is no consolidation. There is no free air. Prominent loops gas-filled small bowel are noted without convincing evidence for a small bowel obstruction. Bilateral renal calculi measure up to 5 mm. IMPRESSION: 1. No free air or evidence for a bowel obstruction. 2. No acute cardiopulmonary findings. 3. Bilateral nephrolithiasis. Electronically signed by: Harish Oswald M.D. 01/04/2018 7:12 AM Dictated Date/Time: 01/04/2018 7:09 AM Medication Reconciliation New Medications: Guaifenesin (Organ-I Nr) 200 Mg Tab 1 TAB PO Q8 PRN for Cough for 5 Days Prednisone (Prednisone) 20 Mg Tab 1 TAB PO DAILY for 5 Days Doxycycline Hyclate (Doxycycline Hyclate) 100 Mg Cap 100 MG PO BID for 5 Days, CAP Sennosides-Docusate Sodium (Senokot S) 1 Tab Tab 1 TAB PO BID PRN for for constipation, #30 TAB hold for loose stool and diarrhea Continued Medications: Acetaminophen (Tylenol) 500 Mg Tab 1000 MG PO Q8 PRN for Pain, TAB Allopurinol (Zyloprim) 300 Mg Tab 300 MG PO DAILY, TAB Amlodipine (Norvasc) 5 Mg Tab 5 MG PO DAILY, TAB Aspirin (Aspirin) 325 Mg Tab 325 MG PO DAILY, TAB Atorvastatin (Lipitor) 10 Mg Tab 10 MG PO DAILY, TAB Cholecalciferol (Vitamin D3) 1,000 Unit Tab 1 TAB PO DAILY, TAB Citalopram Hydrobromide (Citalopram Hydrobromide) 20 Mg Tab 20 MG PO DAILY, TAB 3 Refills Finasteride (Proscar) 5 Mg Tab 5 MG PO DAILY, TAB Multivitamin (Multivitamin) Tab 1 TAB PO DAILY, TAB Ocuvite Preservision (Ocuvite Preservision) 1 Tab Tab 1 TAB PO DAILY, TAB Pantoprazole (Protonix) 40 Mg Tab 40 MG PO DAILY, #30 TAB Tamsulosin HCl (Tamsulosin HCl) 0.4 Mg Cap 1 CAP PO DAILY Tramadol (Ultram) 50 Mg Tab 50 MG PO Q6 PRN for Pain, TAB Zolpidem Tartrate (Ambien) 10 Mg Tab 5 MG PO HS PRN, TAB Admission Information HPI (per Admitting provider): CHIEF COMPLAINT: Cough, congestion, abdominal pain. HISTORY OF PRESENT ILLNESS: History obtained from the patient and records. Medical history significant for CAD status post stent, PVD, hypertension, hyperlipidemia, past tobacco abuse, GERD, anxiety, Chronic pain secondary to myofascial pain syndrome, aortic stenosis as per records, chronic anemia (baseline hemoglobin 12). Recent confinement under orthopedic service for right shoulder surgery in 2011. The last few days, the patient noted sinus symptoms, congestion, initially productive of clear later junky sputum. No chest pain with coughing, some chills, wheezing noted. Denies aspiration. Increasing abdominal pain, constipation. Some nausea, no emesis. Patient denies dysuria. Possible sick contacts. Denies flulike symptoms. At the ER, patient noted to be hypoxemic. He received a breathing treatment. MEDICAL HISTORY: As above. A 2D echo from June 2017 showed EF of 65%, severely calcified aortic valve. Physical Exam (per Admitting): VITAL SIGNS: Blood pressure noted to be 165/89, pulse rate 97, RR 24, temperature 37, sats 88 on 4 liters. GENERAL: Noted to be somewhat irate, minimal respiratory distress. SKIN : pallor, warm HEENT : Pale palpebral conjunctiva. No ptosis. Dry buccal mucosa. Nasal cannula in place. NECK: Supple, nontender. CHEST: Occasional wheeze. No tenderness. HEART: Regular rate and rhythm, systolic murmur. ABDOMEN: Some distension, nontender. EXTREMITIES: No edema noticed. No LE tenderness. No gross deformities. NEUROLOGIC: Coherent. No gross focality. Hospital Course Acute hypoxia respiratory failure Possible due to bronchitis. Flu negative for influenza antigen and PCR Blood cx no growth CXR negative for Pneumonia Continue doxycycline Received solumedrol this morning Continue neb treatment continue monitor Clinically improved Constipation Mostly induced by narcotic CT abdomen showed no acute process within the abdomen or pelvis.Extensive left colon diverticulosis without evidence for acute diverticulitis. resolved CAD S/P stenting. Peripheral vascular disease Continue Aspirin/Statin Stable Chronic pain syndrome On tramadol and Tylenol Weakness Possible related to the acute illness UA negative PT/OT recommended to discharge home once medically stable Fall precaution Chronic anemia Hemoglobin at baseline. Stable DVT px on Lovenox CODE STATUS FULL CODE Disposition Follow up with Dr. Pearl on 01/08 @ 12:45 Total time spent on discharge = 35 minutes This includes examination of the patient, discharge planning, medication reconciliation, and communication with other providers. Discharge Instructions Discharge Instructions Date of Service Jan 05, 2018. Admission Reason for Admission: Respiratory Failure, Acute Discharge Discharge Diagnosis / Problem: Acute hypoxia respiratory failure, Bronchitis Discharge Goals Goal(s): Decrease discomfort, Improve function, Improve disease control Activity Recommendations Activity Limitations: resume your previous activity (as tolerated) . Instructions / Follow-Up Instructions / Follow-Up Follow up with Dr. Pearl on 01/08 @ 12:45 pm Complete course of antibiotic with doxycycline and prednisone Fall precaution Use walker to ambulate Current Hospital Diet Patient's current hospital diet: AHA Diet (Heart Healthy) Discharge Diet Recommended Diet: AHA Diet (Heart Healthy) Pending Studies Studies pending at discharge: no Medical Emergencies . Who to Call and When: Medical Emergencies: If at any time you feel your situation is an emergency, please call 911 immediately. . Non-Emergent Contact Non-Emergency issues call your: Primary Care Provider Call Non-Emergent contact if: you have a fever, you have any medication questions . . "Provider Documentation" section prepared by Miguelito Santiago. . VTE Core Measure Inpt VTE Proph given/why not?: Enoxaparin (Lovenox)SQ Additional Copies To Sanya Pearl MD
== END 2018-01-05 18:00 | disposition home or self-care (01) | DRG 189 ==
LOC: EDBD 23:01 → C.EDA 23:02 → C.MS4W 01-04 05:32 → EDBEDREQ 01-04 05:35 → ENRESERV 01-04 05:45
PROVIDERS: ADMIT Internal Medicine; ATTEND Internal Medicine
DX: J96.01 Acute respiratory failure with hypoxia (principal); J40 Bronchitis, not specified as acute or chronic; R10.84 Generalized abdominal pain; R53.1 Weakness; K59.03 Drug induced constipation; T40.605A Adverse effect of unspecified narcotics, initial encounter; I10 Essential (primary) hypertension; E78.5 Hyperlipidemia, unspecified; K21.9 Gastro-esophageal reflux disease without esophagitis; K57.30 Diverticulosis of large intestine without perforation or abscess without bleeding; G89.4 Chronic pain syndrome; M79.1 Myalgia; I25.10 Atherosclerotic heart disease of native coronary artery without angina pectoris; I35.0 Nonrheumatic aortic (valve) stenosis; I73.9 Peripheral vascular disease, unspecified; D64.9 Anemia, unspecified; F41.9 Anxiety disorder, unspecified; Z87.891 Personal history of nicotine dependence; Z95.5 Presence of coronary angioplasty implant and graft; Z79.82 Long term (current) use of aspirin; Z79.899 Other long term (current) drug therapy